=== PATIENT | female | born 1955 | race Caucasian/White ===

== ENCOUNTER 2023-07-25 20:51 | Inpatient (IN) | payer OTHER ==
[~2023-07-25] VITALS: Ht 152.4 cm; Wt 77.0 kg
[2023-07-25] MEDS ORDERED: SYNTHROID100 M14 PO (21:27)
[2023-07-25 22:08] LABS: BASOPHILS ABSOLUTE AUTO 0.06 K/mm3 (0.00-0.23); BASOPHILS PERCENT AUTO 0 % (0-2); EOSINOPHILS ABSOLUTE AUTO 0.28 K/mm3 (0.00-0.68); EOSINOPHILS PERCENT AUTO 2 % (0-6); Hematocrit 44.7 % (33.0-51.0); Hemoglobin 15.4 g/dL (11.5-16.0); IMMATURE GRAN ABSOLUTE AUTO 0.04 K/mm3 (0.00-0.10); IMMATURE GRAN PERCENT AUTO 0 % (0-1); LYMPHOCYTES ABSOLUTE AUTO 2.69 K/mm3 (0.84-5.20); LYMPHOCYTES PERCENT AUTO 20 % (21-46); MONOCYTES ABSOLUTE AUTO 0.93 K/mm3 (0.16-1.47); MONOCYTES PERCENT AUTO 7 % (4-13); Mean Corpuscular HGB 31.9 pg (26.0-34.0); Mean Corpuscular HGB Conc 34.5 g/dL (31.5-36.5); Mean Corpuscular Volume 93 fL (80-100); Mean Platelet Volume 10.1 fL (9.1-12.4); NEUTROPHILS ABSOLUTE AUTO 9.66 K/mm3 (1.96-9.15); NEUTROPHILS PERCENT AUTO 71 % (41-73); Platelet Count 418 K/mm3 (150-400); RDW Coefficient Variation 12.7 % (11.7-14.2); RDW Standard Deviation 43.3 fL (35.1-46.3); Red Blood Cell Count 4.83 M/mm3 (3.80-5.20); White Blood Cell Count 13.66 K/mm3 (4.00-11.30)
[2023-07-25 22:23] LABS: Albumin, Blood 3.8 g/dL (3.4-5.0); Albumin/Globulin Ratio 0.9 (0.8-1.8); Bilirubin, Total 0.5 mg/dL (0.1-1.0); Bun/Creatinine Ratio 14.1 (12.0-20.0); Calcium, Blood 9.2 mg/dL (8.5-10.1); Creatinine, Blood 0.78 mg/dL (0.40-1.00); Globulin, Blood 4.4 g/dL (2.2-4.0); Potassium, Blood 3.8 mmol/L (3.5-5.5); Total Protein, Blood 8.2 g/dL (6.4-8.2)
[2023-07-26 00:21] LABS: Amylase, Blood 362 U/L (25-115); Ethanol (Alcohol), Blood, Med <3 mg/dL; Triglycerides 273 mg/dL (30-160)
[2023-07-26 06:25] VITALS: BP 143/77
--- NOTE | 2023-07-26 06:52 | NUR ---
PT AOX4. REPORTS PAIN 2/10, IMPROVED FROM HER TIME IN THE ED. SR WITH STABLE BP. ROOM AIR. NPO.
[2023-07-26 07:56] VITALS: BP 150/85
--- NOTE | 2023-07-26 16:20 | NUR ---
THIS NURSE RECIEVED REPORT FROM ILDA BLANKENSHIP IN PCU. PATIENT IS WALKING OVER TO HER NEW ROOM IN 212 WITH HER IV POLE. PATIENT IS LAYING IN BED WITH CALL LIGHT IN REACH AND A NEW CUP OF ICE CHIPS.
--- NOTE | 2023-07-26 16:25 | NUR ---
TRANSFER UPDATE REPORT GIVEN AT BEDSIDE TO EDYTA BLANKENSHIP AT 1610. PT TRANSFERED TO [facility] AT 1620. PT REQUESTED TO WALK TO ROOM, TOLERATED WELL. PT BELONGINGS IN BAGS AND TRANSFERED WITH PT. PT CHART TAKEN BY EDYTA BLANKENSHIP AT TIME OF REPORT. PT PHONE IN PURSE AND TRANSFERED WITH PT.
--- NOTE | 2023-07-26 17:13 | NUR ---
SHIFT SUMMARY: PANCREATITIS PATIENT IS A&OX4. VS ARE WNL AND IS ON RA. PATIENT DENIES PAIN AT THIS TIME. SHE IS TOLERATING SMALL AMOUNTS OF PO ICE CHIPS. PATIENT IS INDEP. IN THE ROOM. PATIENT IS VOIDING AND PASSING GAS. PATIENT IS CURRENTLY LAYING IN BED WITH CALL LIGHT IN REACH AND AT BEDSIDE. THE PLAN IS TO POSSIBLY ADVANCE DIET TO CLEAR LIQUIDS IF APPROPRIATE TO DO SO.
[2023-07-26 19:18] VITALS: BP 128/63
--- NOTE | 2023-07-27 04:34 | NUR ---
SHIFT SUMMARY S/P PANCREATITIS. NO ACUTE CHNAGES OVERNIGHT. VS WNL FOR PT. NPO AT THIS TIME, TOLERATING SMALL AMOUNTS OF ICE CHIPS. NS PER EMAR. PT INDEPENDENT IN ROOM, VOIDING. ANTICIPATED ADVANCEMENT TO CLEAR DIET. PT SLEPT WELL T/O NIGHT, DENIES PAIN. CALLL LIGHT WITHIN REACH, BED IN LOWEST POSITION, WILL REPORT TO DAY RN.
[2023-07-27 04:41] VITALS: BP 121/65
[2023-07-27 05:21] LABS: BASOPHILS ABSOLUTE AUTO 0.04 K/mm3 (0.00-0.23); BASOPHILS PERCENT AUTO 0 % (0-2); EOSINOPHILS ABSOLUTE AUTO 0.32 K/mm3 (0.00-0.68); EOSINOPHILS PERCENT AUTO 3 % (0-6); Hematocrit 39.3 % (33.0-51.0); Hemoglobin 12.9 g/dL (11.5-16.0); IMMATURE GRAN ABSOLUTE AUTO 0.05 K/mm3 (0.00-0.10); IMMATURE GRAN PERCENT AUTO 1 % (0-1); LYMPHOCYTES ABSOLUTE AUTO 1.82 K/mm3 (0.84-5.20); LYMPHOCYTES PERCENT AUTO 17 % (21-46); MONOCYTES ABSOLUTE AUTO 0.83 K/mm3 (0.16-1.47); MONOCYTES PERCENT AUTO 8 % (4-13); Mean Corpuscular HGB 31.5 pg (26.0-34.0); Mean Corpuscular HGB Conc 32.8 g/dL (31.5-36.5); Mean Corpuscular Volume 96 fL (80-100); Mean Platelet Volume 9.9 fL (9.1-12.4); NEUTROPHILS ABSOLUTE AUTO 7.46 K/mm3 (1.96-9.15); NEUTROPHILS PERCENT AUTO 71 % (41-73); Platelet Count 320 K/mm3 (150-400); RDW Standard Deviation 46.2 fL (35.1-46.3); White Blood Cell Count 10.52 K/mm3 (4.00-11.30)
[2023-07-27 05:45] LABS: Albumin/Globulin Ratio 0.9 (0.8-1.8); Bilirubin, Total 0.9 mg/dL (0.1-1.0); Bun/Creatinine Ratio 10.4 (12.0-20.0); Creatinine, Blood 0.67 mg/dL (0.40-1.00); Globulin, Blood 3.3 g/dL (2.2-4.0); Potassium, Blood 3.9 mmol/L (3.5-5.5); Total Protein, Blood 6.3 g/dL (6.4-8.2)
[2023-07-27 07:40] VITALS: BP 127/65
--- NOTE | 2023-07-27 08:21 | NUR ---
A&OX4, PLEASANT AND COOPERATIVE, DENIES ANY PAIN, NAUSEA OR ANY DISCOMFORT THIS AM, DR. CEBALLOS IN TO SEE PT, STARTED ON CLEAR LIQUIDS THIS AM, CONT. TO MONITOR FOR ANY CHANGES.
[2023-07-27 15:36] VITALS: BP 135/71
--- NOTE | 2023-07-27 16:28 | NUR ---
SUMMARY DENIED ANY PAIN THIS SHIFT, TOLERATED CLEAR LIQUIDS FAIRLY WELL, PT DID REPORT SOME MILD "BLOATING" THIS AM AFTER TRYING CLEAR LIQUIDS, PT HAS AMBULATED DOWN THE HALLS X3, REPORTS PASSING FLATUS, REPORTS TOLERATED CL AFTER LUNCH "A LITTLE BETTER" TOOK A NAP THIS AFTERNOON, NO ACUTE CHANGES THIS SHIFT.
--- NOTE | 2023-07-27 16:59 | NUR ---
ASSUMED CARE OF PT FROM LAUREL Robertson RN. PT RESTING IN BED, CALL LIGHT IN REACH. DENIES ANY NEEDS AT THIS TIME.
[2023-07-27 19:07] VITALS: BP 139/83
--- NOTE | 2023-07-28 04:24 | NUR ---
SHIFT SUMMARY S/P PANCREATITIS. NO ACUTE CHANGES OVERNGIHT. VS WNL FOR PT. NPO AT THIS TIME, TOLERATING CLEAR LIQUID DIET, SALIENE LOCKED. PT INDEPENDENT IN ROOM, VOIDING. ANTICIPATED ADVANCEMENT TO FULL LIQUID DIET TOLERATED. PT SLEPT WELL T/O NIGHT, DENIES PAIN. CALL LIGHT WITHIN REACH, BED IN LOWEST POSITION, WILL REPORT TO DAY RN.
[2023-07-28 05:18] VITALS: BP 127/54
[2023-07-28 07:17] VITALS: BP 126/73
[2023-07-28] MEDS ORDERED: TRAM50 PO (10:28)
--- NOTE | 2023-07-28 11:25 | NUR ---
DISCHARGE: PT D/C @1120 INDEPENDENTLY WITH VIA AUTOMOBILE. PT AWARE TO EAT FULL LIQUIDS FOR 3 DAYS AND ADVANCE TOLERATED. PT GIVEN HARD SCRIPT FOR TORADOL IN D/C PACKET. NO NEW MEDICATIONS. INSTRUCTIONS ON PANCREATITIS AND FULL LIQUID DIET PROVIDED TO PT. IV TAKEN OUT OF LFA W/O COMPLICATIONS. NO QUESTIONS FROM PT AT TIME OF D/C.
== END 2023-07-28 11:22 | disposition home or self-care (01) | DRG 440 ==
LOC: ER 20:51 → MEDS 07-26 05:04 → SURS 07-26 05:04 → PCU 07-26 05:04 → SURS 07-26 16:19
PROVIDERS: Emergency Medicine; ADMIT Internal Medicine
DX: K85.20 Alcohol induced acute pancreatitis without necrosis or infection (principal); F10.10 Alcohol abuse, uncomplicated; E03.9 Hypothyroidism, unspecified; E86.0 Dehydration; D72.829 Elevated white blood cell count, unspecified; Z91.018 Allergy to other foods; Z79.890 Hormone replacement therapy; Z98.51 Tubal ligation status; Z90.49 Acquired absence of other specified parts of digestive tract; Z79.899 Other long term (current) drug therapy; Z90.710 Acquired absence of both cervix and uterus
CPT/HCPCS: 36415; 71046; 74177; 76705; 80053; 82150; 83690; 83880; 84478; 84484; 85025; 93005; 93010; 96374-59; 96375; 96375-59; 99285-25; A9270; J1650; J1885; J2405; J3010; J7030; J7120; Q9967

== ENCOUNTER → 2023-08-08 | Outpatient (CLI) | payer OTHER ==
[~2023-08-08] MED LIST: SYNTHROID100 M14 PO; TRAM50 PO
== END ==
LOC: LAB SHORT 17:24 → LAB 17:24
DX: M10.072 Idiopathic gout, left ankle and foot (principal)
CPT/HCPCS: 84550

== ENCOUNTER → 2024-09-02 | Outpatient (CLI) | payer OTHER | LOC: LAB SHORT 16:07 → LAB 16:07 | DX: N39.0 Urinary tract infection, site not specified (principal) | CPT/HCPCS: 87086 ==